=== PATIENT | male | born 1960 | race Caucasian/White ===

== ENCOUNTER 2017-08-03 09:51 | Emergency (ER) | payer OTHER, SELFPAY ==
[2017-08-03] MEDS ORDERED: Amoxicillin/Potassium Clav 875 MG TAB ONE (10:24)
[2017-08-03] MEDS ORDERED: Ketorolac Tromethamine 60 MG/2 ML VIAL ONE (10:24)
== END 2017-08-03 10:46 | disposition home or self-care (01) ==
LOC: BURERS 09:51
DX: H66.91 Otitis media, unspecified, right ear (principal); H72.91 Unspecified perforation of tympanic membrane, right ear; I25.2 Old myocardial infarction; F17.210 Nicotine dependence, cigarettes, uncomplicated
CPT/HCPCS: 96372; J1885